=== PATIENT | female | born 1935 | race Caucasian/White ===

== ENCOUNTER → 2018-04-16 | Outpatient (CLI) | payer MEDICARE ==
--- NOTE | 2018-04-16 10:39 | Diagnostic Imaging Report ---
Exam: Bone mineral density study. History: Osteopenia. Comparison: None Discussion: Evaluation of the left hip and lumbar spine was performed utilizing DEXA Hologic bone densitometer. The study is technically adequate. Left hip total bone mineral density: 0.682gm/cm2, T-score is -2.1, Z-score is 0. Left hip femoral neck bone mineral density: 0.687gm/cm2, T-score is -1.5, Z-score is 0.9. Lumbar spine total bone mineral density:0.952gm/cm2, T-score is-0.9, Z-score is 1.9. Impression: 1. Osteopenia of the left hip, fracture risk is increased 2. Normal bone mineral density of the lumbar spine, fracture risk is not increased. The BMD change versus baseline is 0.9% and the BMD change versus previous 0.9% . Least significant change (LSC) for bone mineral density as provided by production line mechanic is 0.023 g/cm2 for lumbar spine and 0.027 g/cm2 for total hip. 10 -year fracture risk per WHO Fracture Risk Assessment Tool (FRAX) for: Not reported because patient treated for osteoporosis The patient's fracture risk is compared to an age-matched control. Medical evaluation for secondary causes of low bone bone mineral density may be appropriate. Correlate clinically for the necessity and timing of the next bone mineral density study. Signed by: Dr. Saulo Moraes M.D. on 04/16/2018 10:36 AM
== END ==
LOC: DX 09:50
PROVIDERS: ATTEND Family Medicine
DX: M81.0 Age-related osteoporosis without current pathological fracture (principal)
CPT/HCPCS: 77080